=== PATIENT | female | born 1945 | race Two or more races ===

== ENCOUNTER 2022-01-30 05:17 | Inpatient (IN) | payer MEDICAID ==
[~2022-01-30] VITALS: Ht 157.5 cm; Wt 78.9 kg
[2022-01-30] VITALS (32 sets, daily range): BP systolic 93–158; BP diastolic 23–91
[2022-01-30] MEDS ORDERED: GLUCAGON,HUMAN RECOMBINANT 1MG/VIAL IM ONE (05:30)
[2022-01-30] MEDS ORDERED: ATROPINE SULFATE 0.4MG/ML VIAL IV ONE (05:30)
[2022-01-30] MEDS ORDERED: BLOOD SUGAR DIAGNOSTIC STRIP TEST ONE (05:30)
[2022-01-30] MEDS ORDERED: ATROPINE SULFATE 0.4MG/ML VIAL IM ONE (05:30)
[2022-01-30] MEDS ORDERED: GLUCAGON,HUMAN RECOMBINANT 1MG/VIAL IV ONE (05:30)
[2022-01-30] MEDS ORDERED: ATROPINE SULFATE 1MG/10ML SYR ONE (05:34)
[2022-01-30] MEDS ORDERED: SODIUM POLYSTYRENE SULFONATE 15 G/60 ML BOT NG ONE (05:45)
[2022-01-30] MEDS ORDERED: INSULIN REGULAR (HUMULIN R) 300UNITS/3ML VIAL IV ONE (05:45)
[2022-01-30] MEDS ORDERED: CALCIUM CHLORIDE 1,000 MG in DEXT 5% WATER 90 ML IV ONE (05:45)
[2022-01-30] MEDS ORDERED: GLUCAGON,HUMAN RECOMBINANT 1MG/VIAL IM NR (05:45)
[2022-01-30 05:47] LABS: BASOPHILS % 0.6 % (0.0-2.0); EOSINOPHILS % 0.8 % (0.0-5.0); LYMPHOCYTES % 17.7 % (20.0-50.0); MEAN CORPUSCULAR HEMOGLOBIN 30.1 pg (28.0-32.0); MEAN CORPUSCULAR VOLUME 97.1 fL (81.0-99.0); MEAN PLATELET VOLUME 7.7 fl (7.4-10.4); MONOCYTES % 4.8 % (2.0-8.0); NEUTROPHILS % 76.1 % (40.0-76.0); PLATELET 315 x1000/uL (130-400); RED BLOOD CELL COUNT 2.04 mill/uL (4.2-5.4); RED CELL DISTRIBUTION WIDTH 15.9 % (11.6-14.6)
[2022-01-30 05:52] LABS: HEMATOCRIT. 19.8 % (36.0-48.0); HEMOGLOBIN. 6.2 g/dL (12.0-16.0)
[2022-01-30 05:56] LABS: CHLORIDE 95 mEq/L (98-107)
[2022-01-30] MEDS ORDERED: ONDANSETRON HCL 4MG/2ML INJ IV ONE (06:00)
[2022-01-30] MEDS ORDERED: CALCIUM CHLORIDE 1GM/10ML SYR IV ONE (06:30)
[2022-01-30] MEDS ORDERED: SODIUM BICARBONATE 8.4% 1 MEQ/ML 50ML SYR IV SCH (08:00)
[2022-01-30] MEDS ORDERED: SODIUM POLYSTYRENE SULFONATE 15 G/60 ML BOT NG NR (09:30)
[2022-01-30] MEDS ORDERED: ONDANSETRON HCL 4MG/2ML INJ IV NR (09:30)
[2022-01-30 09:35] LABS: HEPATITIS B SURFACE ANTIGEN NEGATIVE
[2022-01-30] MEDS ORDERED: DEXTROSE 50% WATER 50ML SYRINGE IV PRN (13:30)
[2022-01-30] MEDS ORDERED: ACETAMINOPHEN 325MG TABLET PO PRN (13:30)
[2022-01-30] MEDS: BLOOD SUGAR DIAGNOSTIC STRIP TEST SCH ×2 (18:05→21:00)
[2022-01-30] MEDS: INSULIN LISPRO 100 UNITS/ML SUBCUT SCH ×2 (18:12→21:32)
[2022-01-30 19:22] LABS: HEMATOCRIT 22.6 % (36.0-48.0); HEMOGLOBIN 7.5 g/dL (12.0-16.0)
[2022-01-31] VITALS (16 sets, daily range): BP systolic 100–145; BP diastolic 39–70
[2022-01-31 06:18] LABS: BASOPHILS % 0.3 % (0.0-2.0); EOSINOPHILS % 3.1 % (0.0-5.0); LYMPHOCYTES % 20.3 % (20.0-50.0); MEAN CORPUSCULAR HEMOGLOBIN 30.5 pg (28.0-32.0); MEAN CORPUSCULAR VOLUME 91.7 fL (81.0-99.0); MEAN PLATELET VOLUME 8.2 fl (7.4-10.4); MONOCYTES % 8.4 % (2.0-8.0); NEUTROPHILS % 67.9 % (40.0-76.0); PLATELET 258 x1000/uL (130-400); RED BLOOD CELL COUNT 2.18 mill/uL (4.2-5.4); RED CELL DISTRIBUTION WIDTH 15.7 % (11.6-14.6)
[2022-01-31 06:53] LABS: HEMOGLOBIN. 6.7 g/dL (12.0-16.0)
[2022-01-31] MEDS: BLOOD SUGAR DIAGNOSTIC STRIP TEST SCH ×4 (08:00→21:00)
[2022-01-31] MEDS: INSULIN LISPRO 100 UNITS/ML SUBCUT SCH ×4 (08:37→23:34)
[2022-01-31] MEDS ORDERED: POTASSIUM CHLORIDE 20MEQ TABLET SR PO NR (08:45)
[2022-01-31] MEDS ORDERED: ASPI-1497 MT (15:29)
[2022-01-31] MEDS ORDERED: SEVE800T8 MT (15:29)
[2022-01-31] MEDS ORDERED: LORA10TA7 MT (15:29)
[2022-01-31] MEDS ORDERED: ATOR40TA70 MT (15:29)
[2022-01-31] MEDS ORDERED: GABA-529 MT (15:29)
[2022-01-31] MEDS ORDERED: BUME2TAB8 MT (15:29)
[2022-01-31] MEDS ORDERED: CARV12.545 MT (15:29)
[2022-01-31] MEDS ORDERED: AMLO10TA80 MT (15:29)
[2022-01-31] MEDS ORDERED: APIX2.5T PO (15:29)
[2022-01-31 16:42] LABS: HEMOGLOBIN 8.2 g/dL (12.0-16.0)
[2022-01-31 16:50] LABS: INR 1.2; PROTHROMBIN TIME 12.5 sec (9.6-11.0)
[2022-01-31] MEDS ORDERED: EPOETIN ALFA-EPBX 4,000 UNIT/ML VIAL SUBCUT SCH (21:00)
[2022-02-01] VITALS (13 sets, daily range): BP systolic 98–137; BP diastolic 45–83
[2022-02-01 02:34] LABS: FOLIC ACID (FOLATE) SERUM 5.5 ng/mL (>5.38)
[2022-02-01 05:39] LABS: BASOPHILS % 0.3 % (0.0-2.0); HEMATOCRIT. 23.5 % (36.0-48.0); HEMOGLOBIN. 7.9 g/dL (12.0-16.0); LYMPHOCYTES % 19.4 % (20.0-50.0); MEAN CORPUSCULAR VOLUME 89.6 fL (81.0-99.0); MEAN PLATELET VOLUME 7.7 fl (7.4-10.4); MONOCYTES % 9.5 % (2.0-8.0); NEUTROPHILS % 66.8 % (40.0-76.0); PLATELET 245 x1000/uL (130-400); RED BLOOD CELL COUNT 2.63 mill/uL (4.2-5.4)
[2022-02-01] MEDS: BLOOD SUGAR DIAGNOSTIC STRIP TEST SCH ×2 (07:30→12:47)
[2022-02-01] MEDS: INSULIN LISPRO 100 UNITS/ML SUBCUT SCH ×2 (10:15→12:47)
== END 2022-02-01 14:10 | disposition home or self-care (01) | DRG 425 ==
LOC: EDBD 05:17 → ER 05:17 → 5EST 07:13 → EDBEDREQ 07:32 → EDBEDREQTM 07:32 → ENRESERV 11:33
PROVIDERS: ADMIT Internal Medicine; ATTEND Internal Medicine
PROC: 5A1D70Z Performance of Urinary Filtration, Intermittent, Less than 6 Hours Per Day (ICD-10-PCS; principal; 2022-01-30)
PROC: 30233N1 Transfusion of Nonautologous Red Blood Cells into Peripheral Vein, Percutaneous Approach (ICD-10-PCS; 2022-01-30)
PROC: 5A1D70Z Performance of Urinary Filtration, Intermittent, Less than 6 Hours Per Day (ICD-10-PCS; 2022-02-01)
DX: E87.5 Hyperkalemia (principal); I13.2 Hypertensive heart and chronic kidney disease with heart failure and with stage 5 chronic kidney disease, or end stage renal disease; N18.6 End stage renal disease; E44.1 Mild protein-calorie malnutrition; D63.1 Anemia in chronic kidney disease; E11.22 Type 2 diabetes mellitus with diabetic chronic kidney disease; E87.1 Hypo-osmolality and hyponatremia; E87.8 Other disorders of electrolyte and fluid balance, not elsewhere classified; E11.65 Type 2 diabetes mellitus with hyperglycemia; R74.01 Elevation of levels of liver transaminase levels; I50.9 Heart failure, unspecified; D72.829 Elevated white blood cell count, unspecified; R09.89 Other specified symptoms and signs involving the circulatory and respiratory systems; Z68.31 Body mass index [BMI] 31.0-31.9, adult; Z99.2 Dependence on renal dialysis; Z79.82 Long term (current) use of aspirin; Z86.718 Personal history of other venous thrombosis and embolism; Z90.49 Acquired absence of other specified parts of digestive tract
CPT/HCPCS: 36415; 71045; 76700; 80048; 80053; 80076; 82140; 82270; 82550; 82607; 82728; 82746; 82962; 83036; 83540; 83550; 83880; 84132; 84484; 85014; 85018; 85025; 85044; 86705; 86709; 86803; 86850; 86900; 86920; 87340; 90935; 93005; 99291; J0461; J0885; J1610; J1815; J2405; J3490; J7060; P9016